=== PATIENT | female | born 1940 | race Caucasian/White ===

== ENCOUNTER 2020-03-19 06:42 | Day surgery (SDC) | payer MEDICARE ==
[~2020-03-19] VITALS: Ht 154.9 cm; Wt 93.2 kg
[2020-03-19] VITALS (8 sets, daily range): BP systolic 106–181; BP diastolic 43–64
[~2020-03-19 06:42] MED LIST: ASPI-1071 PO; CALC-212 PO; CLOP75TA33 PO; CYAN100097 PO; FIBER PO; ISOS60TA4 PO; LEVO150T8 PO; LOSA25TA96 PO; METO-411 PO; MULT-1074 PO; NIAC500C3 PO; NITR0.4T48 SL; NITR100C6 PO; OMEG-182 PO; RANI150T8 PO; WALKERFR; ZOLP10TA5 PO; [UNRECOGNIZED DRUG - CODE] PO
[2020-03-19] MEDS ORDERED: normal saline 1000ml 1,000 ML IV PRN (07:05)
[2020-03-19 07:37] LABS: BASOPHILS # (AUTO) 0.1 X10'3 (0-0.2); BASOPHILS % (AUTO) 0.8 % (0-1); EOSINOPHILS # (AUTO) 0.2 X10'3 (0-0.9); EOSINOPHILS % (AUTO) 2.6 % (0-6); HEMATOCRIT 40.1 % (35.0-45.0); HEMOGLOBIN 13.9 g/dl (12.0-16.0); LYMPHOCYTES # (AUTO) 2.6 X10'3 (1.1-4.8); LYMPHOCYTES % (AUTO) 27.8 % (21-51); MEAN CORPUSCULAR HGB CONC 34.5 g/dL (33.0-36.5); MEAN CORPUSCULAR VOLUME 98.4 FL (78-98); MEAN PLATELET VOLUME 7.5 FL (7.4-10.4); MONOCYTES # (AUTO) 0.8 X10'3 (0-0.9); MONOCYTES % (AUTO) 8.4 % (2-12); NEUTROPHILS # (AUTO) 5.7 X10'3 (1.8-7.7); NEUTROPHILS % (AUTO) 60.4 % (42-75); PLATELET COUNT 273 X10'3 (140-440); RED BLOOD COUNT 4.08 X10'6 (4.20-5.60); WHITE BLOOD COUNT 9.5 X10'3 (4.5-11.0)
[2020-03-19] MEDS ORDERED: pneumococcal 23-VAL P-sac vacc 25 mcg/0.5ml vial IMVAC ONE (07:55)
[2020-03-19] MEDS ORDERED: iohexol 300mg/ml 100ml inj. ONE (08:18)
[2020-03-19] MEDS ORDERED: LIDOcaine 1%/PF 5ML 10 MG/ML VIAL ONE (08:18)
[2020-03-19] MEDS ORDERED: fentaNYL/PF 50MCG/1 ML 2ML syringe ONE (08:18)
[2020-03-19] MEDS ORDERED: heparin 1,000 UNITS/NS 500ml 500 ML ONE (08:18)
[2020-03-19] MEDS ORDERED: midazolam 2 mg/2 ml injection ONE (08:18)
[2020-03-19] MEDS ORDERED: normal saline 1000ml 1,000 ML IV SCH (09:39)
--- NOTE | 2020-03-19 09:54 | NUR ---
Pt returned to room from procedure. VS stable as charted. Site dressing CD&I. NO s/s of bleeding. will continue to monitor
--- NOTE | 2020-03-19 10:09 | NUR ---
contacted pts per her request. discussed discharge plan.
--- NOTE | 2020-03-19 11:19 | NUR ---
pt requesting chicken broth. will bring to pt and continuing to monitor. pt denies cp, denies sob.
== END 2020-03-19 13:05 | disposition home or self-care (01) ==
LOC: SSTAY O 06:42
PROVIDERS: ATTEND Radiology Vascular & Interventional Radiology
DX: R93.422 Abnormal radiologic findings on diagnostic imaging of left kidney (principal); I11.9 Hypertensive heart disease without heart failure; I70.1 Atherosclerosis of renal artery; Z86.79 Personal history of other diseases of the circulatory system; Z79.899 Other long term (current) drug therapy
CPT/HCPCS: 36246; 36415; 75625; 75736; 76937; 85025; 85610; 99152; 99153; C1760; C1769; C1894; J1644; J2250; J3010; J7030; Q9967; 36160; G0269

== ENCOUNTER 2020-06-11 10:05 | Day surgery (SDC) | payer MEDICARE ==
[2020-06-10 12:57] LABS: BASOPHILS # (AUTO) 0.1 X10'3 (0-0.2); BASOPHILS % (AUTO) 0.7 % (0-1); EOSINOPHILS # (AUTO) 0.3 X10'3 (0-0.9); EOSINOPHILS % (AUTO) 2.6 % (0-6); HEMOGLOBIN 13.4 g/dl (12.0-16.0); LYMPHOCYTES # (AUTO) 2.9 X10'3 (1.1-4.8); LYMPHOCYTES % (AUTO) 29.3 % (21-51); MEAN CORPUSCULAR HEMOGLOBIN 33.2 PG (27.0-31.0); MEAN CORPUSCULAR HGB CONC 34.3 g/dL (33.0-36.5); MEAN CORPUSCULAR VOLUME 96.6 FL (78-98); MEAN PLATELET VOLUME 8.1 FL (7.4-10.4); MONOCYTES # (AUTO) 0.9 X10'3 (0-0.9); MONOCYTES % (AUTO) 9.5 % (2-12); NEUTROPHILS # (AUTO) 5.6 X10'3 (1.8-7.7); NEUTROPHILS % (AUTO) 57.9 % (42-75); PLATELET COUNT 256 X10'3 (140-440); RED BLOOD COUNT 4.04 X10'6 (4.20-5.60); WHITE BLOOD COUNT 9.7 X10'3 (4.5-11.0)
[2020-06-10 13:10] LABS: ALBUMIN 3.5 G/DL (3.4-5.0); ANION GAP 5 (8-16); BLOOD UREA NITROGEN 18 MG/DL (7-18); BUN/CREATININE RATIO 19.8 (6.6-38.0); CALCIUM 9.2 MG/DL (8.5-10.1); CHLORIDE 103 MMOL/L (99-107); CREATININE 0.91 MG/DL (0.40-0.90); GLUCOSE 86 MG/DL (70-104); POTASSIUM 3.4 MMOL/L (3.5-5.1); SODIUM 139 MMOL/L (135-145); TOTAL CARBON DIOXIDE 31.1 MMOL/L (24-32); eGFR 60 ML/MIN
[2020-06-10 13:12] LABS: PARTIAL THROMBOPLASTIN TIME 26 SECONDS (22-32)
[~2020-06-11] VITALS: Ht 160 cm; Wt 82.5 kg
[2020-06-11] VITALS (9 sets, daily range): BP systolic 104–146; BP diastolic 49–81
[~2020-06-11 10:05] MED LIST changes: -ASPI-1071 PO; -NIAC500C3 PO
[2020-06-11] MEDS ORDERED: cefazolin/dext.iso 2gm/50ml 50 ML IV ONE (10:25)
[2020-06-11] MEDS ORDERED: GLUC500T12 PO (10:45)
[2020-06-11] MEDS ORDERED: FAMO20TA8 PO (10:45)
[2020-06-11] MEDS ORDERED: VALS1TAB76 PO (10:45)
[2020-06-11] MEDS ORDERED: EST1T PO (10:45)
[2020-06-11] MEDS ORDERED: SUCR1TAB PO (10:45)
[2020-06-11] MEDS ORDERED: UBID100C16 PO (10:45)
[2020-06-11] MEDS ORDERED: NIA500ERT PO (10:45)
[2020-06-11] MEDS ORDERED: LOVA40TA2 PO (10:45)
[2020-06-11] MEDS ORDERED: DOCU-148 PO (10:45)
[2020-06-11] MEDS ORDERED: ceFAZolin 1000mg inj ONE (11:48)
[2020-06-11] MEDS ORDERED: midazolam 2 mg/2 ml injection ONE ×2 (11:48→12:32)
[2020-06-11] MEDS ORDERED: fentaNYL/PF 50MCG/1 ML 2ML syringe ONE ×2 (11:48→13:05)
[2020-06-11] MEDS ORDERED: LIDOcaine 1% W/epiNEPHrine 1:100,000 20ml vial ONE (11:49)
[2020-06-11] MEDS ORDERED: diphenhydrAMINE 50 mg/ml inj ONE (12:34)
[2020-06-11] MEDS ORDERED: normal saline 1000ml 1,000 ML IV SCH (13:55)
[2020-06-11] MEDS ORDERED: HYDROcodone/acetaminophen 10/325mg tab PO PRN (14:00)
[2020-06-11] MEDS ORDERED: HYDROcodone/acetaminophen 5mg/325mg tablet PO PRN (14:00)
[2020-06-11] MEDS ORDERED: vancomycin/NS 1 GM ADD-VANTAGE 250 ML IV ONE (15:00)
== END 2020-06-11 18:30 | disposition home or self-care (01) ==
LOC: SSTAY O 10:05
PROVIDERS: ATTEND Internal Medicine Cardiovascular Disease
DX: I49.5 Sick sinus syndrome (principal); I25.10 Atherosclerotic heart disease of native coronary artery without angina pectoris; I10 Essential (primary) hypertension; E78.5 Hyperlipidemia, unspecified; G47.30 Sleep apnea, unspecified; E78.49 Other hyperlipidemia; K21.9 Gastro-esophageal reflux disease without esophagitis; E66.9 Obesity, unspecified; Z68.38 Body mass index [BMI] 38.0-38.9, adult; F41.9 Anxiety disorder, unspecified; Z95.5 Presence of coronary angioplasty implant and graft; Z79.899 Other long term (current) drug therapy; Z79.01 Long term (current) use of anticoagulants; Z90.49 Acquired absence of other specified parts of digestive tract; Z98.890 Other specified postprocedural states; Z98.41 Cataract extraction status, right eye; Z98.42 Cataract extraction status, left eye; Z90.710 Acquired absence of both cervix and uterus; Z82.49 Family history of ischemic heart disease and other diseases of the circulatory system
CPT/HCPCS: 33208; 36415; 71046; 80048; 85025; 85610; 85730; 93005; 99152; 99153; C1785; C1894; C1898; J0690; J1200; J2250; J3010; J3370; A4565

== ENCOUNTER 2020-06-15 13:18 | Emergency (ER) | payer MEDICARE ==
[~2020-06-15] VITALS: Ht 162.6 cm; Wt 90.9 kg
[~2020-06-15 13:18] MED LIST changes: +DOCU-148 PO; +EST1T PO; +FAMO20TA8 PO; -FIBER PO; +GLUC500T12 PO; -LOSA25TA96 PO; +LOVA40TA2 PO; +NIA500ERT PO; -RANI150T8 PO; +SUCR1TAB PO; +UBID100C16 PO; +VALS1TAB76 PO; -WALKERFR
[2020-06-15 13:24] VITALS: BP 135/65
== END 2020-06-15 14:56 | disposition home or self-care (01) ==
LOC: ER 13:18
DX: M25.532 Pain in left wrist (principal); E78.00 Pure hypercholesterolemia, unspecified; I10 Essential (primary) hypertension; K21.9 Gastro-esophageal reflux disease without esophagitis; Z85.9 Personal history of malignant neoplasm, unspecified; Z98.61 Coronary angioplasty status; Z90.49 Acquired absence of other specified parts of digestive tract; Z95.0 Presence of cardiac pacemaker; Z90.89 Acquired absence of other organs; Z98.890 Other specified postprocedural states; Z88.8 Allergy status to other drugs, medicaments and biological substances; Z79.899 Other long term (current) drug therapy
CPT/HCPCS: 73110; 99284

== ENCOUNTER 2021-04-29 08:08 | Day surgery (SDC) | payer MEDICARE ==
[2021-04-28 11:02] LABS: BASOPHILS # (AUTO) 0.1 X10'3 (0-0.2); BASOPHILS % (AUTO) 0.7 % (0-1); EOSINOPHILS # (AUTO) 0.1 X10'3 (0-0.9); EOSINOPHILS % (AUTO) 1.5 % (0-6); HEMATOCRIT 38.8 % (35.0-45.0); HEMOGLOBIN 13.3 g/dl (12.0-16.0); LYMPHOCYTES % (AUTO) 22.7 % (21-51); MEAN CORPUSCULAR HEMOGLOBIN 33.7 PG (27.0-31.0); MEAN CORPUSCULAR HGB CONC 34.3 g/dL (33.0-36.5); MEAN CORPUSCULAR VOLUME 98.2 FL (78-98); MEAN PLATELET VOLUME 7.4 FL (7.4-10.4); MONOCYTES # (AUTO) 0.7 X10'3 (0-0.9); MONOCYTES % (AUTO) 8.4 % (2-12); NEUTROPHILS # (AUTO) 5.8 X10'3 (1.8-7.7); NEUTROPHILS % (AUTO) 66.7 % (42-75); PLATELET COUNT 249 X10'3 (140-440); RED BLOOD COUNT 3.95 X10'6 (4.20-5.60); RED CELL DISTRIBUTION WIDTH 12.9 % (11.5-14.5); WHITE BLOOD COUNT 8.6 X10'3 (4.5-11.0)
[2021-04-28 11:12] LABS: PARTIAL THROMBOPLASTIN TIME 22 SECONDS (22-32)
[2021-04-28 11:14] LABS: ALBUMIN 3.4 G/DL (3.4-5.0); ANION GAP 12 (8-16); BLOOD UREA NITROGEN 15 MG/DL (7-18); BUN/CREATININE RATIO 15.8 (6.6-38.0); CALCIUM 9.1 MG/DL (8.5-10.1); CHLORIDE 103 MMOL/L (99-107); CREATININE 0.95 MG/DL (0.40-0.90); GLUCOSE 142 MG/DL (70-104); POTASSIUM 3.1 MMOL/L (3.5-5.1); SODIUM 142 MMOL/L (135-145); TOTAL CARBON DIOXIDE 27.2 MMOL/L (24-32); eGFR 57 ML/MIN
[~2021-04-29] VITALS: Ht 154.9 cm; Wt 87.3 kg
[2021-04-29] VITALS (16 sets, daily range): BP systolic 127–173; BP diastolic 44–87
[~2021-04-29 08:08] MED LIST changes: -ISOS60TA4 PO; +ISOS60TA71 PO
[2021-04-29] MEDS ORDERED: LORazepam 0.5 MG tablet PO PRN (08:25)
[2021-04-29] MEDS ORDERED: diphenhydrAMINE 25mg capsule PO PRN (08:25)
[2021-04-29] MEDS: normal saline 1,000 ML IV SCH ×2 (08:37→16:51)
[2021-04-29] MEDS ORDERED: VIT1CAPS46 PO (08:42)
[2021-04-29] MEDS ORDERED: LIDOcaine/PRILOcaine 5gm cream TP ONE (08:52)
[2021-04-29] MEDS ORDERED: iohexol 350 MG/ML 50ML vial IV ONE ×2 (10:36→11:53)
[2021-04-29] MEDS ORDERED: LIDOcaine 1% (10mg/ml)w/preservative injection 20ml MDV ONE (10:36)
[2021-04-29] MEDS ORDERED: midazolam 1 mg/ML 2ml injection ONE (10:36)
[2021-04-29] MEDS ORDERED: heparin 1,000unit/ml 10ml vial 10 ML ONE (10:36)
[2021-04-29] MEDS ORDERED: verapamil 2.5 mg/ml inj IV ONE (10:36)
[2021-04-29] MEDS ORDERED: fentaNYL/PF 50MCG/1 ML 2ML syringe ONE (10:36)
[2021-04-29] MEDS ORDERED: iohexol 350MG/ML 100ml bottle IV ONE ×2 (10:37→11:57)
[2021-04-29] MEDS ORDERED: nitroGLYCERIN-Tridil 50MG/D5W 250 ML IV ONE (10:37)
[2021-04-29] MEDS ORDERED: heparin 25,000 UNIT/250ml bag 250 ML IV ONE (11:59)
[2021-04-29] MEDS ORDERED: clopidogrel 300mg tablet ONE (12:22)
[2021-04-29] MEDS ORDERED: morphine 2 MG/ML inj. syringe IV ONE (13:15)
[2021-04-29] MEDS ORDERED: magnesium hydroxide 30ml (MOM) UD suspension PO PRN (13:25)
[2021-04-29] MEDS ORDERED: aspirin 81mg tab.chew PO ONE (13:25)
[2021-04-29] MEDS ORDERED: HYDROcodone/acetaminophen 10/325mg tab PO PRN ×2 (13:25)
[2021-04-29] MEDS ORDERED: acetaminophen 325mg tablet PO PRN ×2 (13:25)
[2021-04-29] MEDS ORDERED: OXAZEpam 15mg capsule PO PRN (13:25)
[2021-04-29] MEDS ORDERED: cyclobenzaprine 10mg tablet PO PRN (13:25)
[2021-04-29 14:20] LABS: ISTAT HGB ART 11.6 g/dl (12.0-16.0); ISTAT Hct ART 34 %PCV (35-48); ISTAT O2 SATURATION ARTERIAL 99 % (95-98); ISTAT SOURCE BLNK
[2021-04-29 14:21] LABS: ISTAT Hct MIX 34 %PCV (35-48); ISTAT O2 SATURATION MIX VENOUS 68 % (60-80); ISTAT SOURCE BLNK
[2021-04-29] MEDS ORDERED: hydrALAZINE 20mg/ml inj. IV ONE (14:30)
--- NOTE | 2021-04-29 14:30 | NUR ---
ACT result is 186, notified MD CAREN stated ok to pull sheath, received orders for Hydrolazine PRN SBP greater than 160.
[2021-04-29] MEDS ORDERED: docusate sod 100mg capsule PO SCH (20:00)
[2021-04-30] MEDS ORDERED: clopidogrel 75mg tablet PO SCH (08:00)
[2021-04-30] MEDS ORDERED: aspirin 325mg tablet PO SCH (08:30)
== END 2021-04-29 20:30 | disposition home or self-care (01) ==
LOC: SSTAY O 08:08
PROVIDERS: ATTEND Internal Medicine Cardiovascular Disease
DX: R53.83 Other fatigue (principal); R06.02 Shortness of breath; I25.10 Atherosclerotic heart disease of native coronary artery without angina pectoris; I10 Essential (primary) hypertension; G47.30 Sleep apnea, unspecified; E78.49 Other hyperlipidemia; F41.9 Anxiety disorder, unspecified; K21.9 Gastro-esophageal reflux disease without esophagitis; E66.9 Obesity, unspecified; Z68.36 Body mass index [BMI] 36.0-36.9, adult; Z95.5 Presence of coronary angioplasty implant and graft; Z79.01 Long term (current) use of anticoagulants; Z79.899 Other long term (current) drug therapy; Z82.49 Family history of ischemic heart disease and other diseases of the circulatory system; Z83.3 Family history of diabetes mellitus
CPT/HCPCS: 36415; 76937; 80048; 82803; 85014; 85025; 85347; 85610; 85730; 93005; 93460; 99152; 99153; C1725; C1751; C1769; C1874; C1894; C9600; J1644; J2001; J2250; J2270; J3010; J7030; Q0163; Q9967; A4620; A5120; A6258; J3490

== ENCOUNTER 2023-02-14 12:29 | Outpatient (CLI) | payer MEDICARE ==
[~2023-02-14 12:29] MED LIST changes: -CYAN100097 PO; -FAMO20TA8 PO; -GLUC500T12 PO; -NIA500ERT PO; -NITR100C6 PO; -OMEG-182 PO; -UBID100C16 PO; +VIT1CAPS46 PO
== END 2023-02-14 23:59 | disposition home or self-care (01) ==
LOC: CARD DIAG 12:29
PROVIDERS: ATTEND Internal Medicine Cardiovascular Disease
DX: I08.3 Combined rheumatic disorders of mitral, aortic and tricuspid valves (principal); R06.02 Shortness of breath; R53.83 Other fatigue
CPT/HCPCS: 93306

== ENCOUNTER 2024-09-17 19:35 | Emergency (ER) | payer MEDICARE ==
[~2024-09-17] VITALS: Ht 160 cm; Wt 86.0 kg
[2024-09-17 21:07] LABS: BILIRUBIN,URINE NEGATIVE (Neg); CLARITY,URINE CLEAR (Clear); COLOR,URINE YELLOW (Yellow); GLUCOSE, URINE NEGATIVE (Neg); KETONES,URINE TRACE mg/dl (Neg); LEUKOCYTE ESTERASE ,URINE SMALL (Neg); NITRITES, URINE NEGATIVE (Neg); OCCULT BLOOD,URINE NEGATIVE (Neg); PROTEIN,URINE TRACE mg/dl (Neg); UROBILINOGEN,URINE 0.2 E.U/dL (0.2-1.0)
[2024-09-17 21:13] LABS: UA COLLECTION TYPE CLN CATCH MIDSTREAM
[2024-09-17 21:15] LABS: SQUAMOUS EPITHELIAL CELL,UR MANY /LPF (FEW)
[2024-09-17 21:16] LABS: BACTERIA,URINE 2+ /HPF (Neg); RBC,URINE NONE SEEN /HPF (0-2)
[2024-09-17 21:17] LABS: CAL OXALATE CRYSTALS 2+ /HPF (NEGATIVE)
[2024-09-17] MEDS ORDERED: PHEN-716 PO (22:23)
[2024-09-17] MEDS ORDERED: CEPH-585 PO (22:23)
[2024-09-17] MEDS: CefTRIAXone 1000mg IM Kit (w/lidocaine diluent) IM ONE (22:26)
[2024-09-17 22:31] VITALS: BP 108/62; PULSE 70; RESP 16; TEMP 97.6; O2SAT 97
== END 2024-09-17 22:32 | disposition home or self-care (01) ==
LOC: ER 19:36
DX: N39.0 Urinary tract infection, site not specified (principal); E78.00 Pure hypercholesterolemia, unspecified; I10 Essential (primary) hypertension; K21.9 Gastro-esophageal reflux disease without esophagitis; Z91.09 Other allergy status, other than to drugs and biological substances; Z79.899 Other long term (current) drug therapy; Z79.2 Long term (current) use of antibiotics; Z90.49 Acquired absence of other specified parts of digestive tract; Z90.710 Acquired absence of both cervix and uterus; Z95.0 Presence of cardiac pacemaker
CPT/HCPCS: 81001; 96372; 99283; J0696

== ENCOUNTER 2024-11-27 12:06 | Outpatient (CLI) | payer MEDICARE ==
[~2024-11-27 12:06] MED LIST changes: +PHEN-716 PO
== END 2024-11-27 23:59 | disposition home or self-care (01) ==
LOC: MRI 12:06
PROVIDERS: ATTEND Nurse Practitioner Family
DX: I67.82 Cerebral ischemia (principal); R42 Dizziness and giddiness; R26.89 Other abnormalities of gait and mobility
CPT/HCPCS: 70551

== ENCOUNTER 2025-04-13 13:30 | Emergency (ER) | payer MEDICARE ==
[~2025-04-13] VITALS: Ht 160 cm; Wt 81.8 kg
[~2025-04-13 13:30] MED LIST changes: +ASPI-1265 PO; -CALC-212 PO; -CLOP75TA33 PO; +CLOP75TA34 PO; +ESTR42.510; +FAMO20TA8 PO; +HYDR12.55 PO; -MULT-1074 PO; -PHEN-716 PO; +VALS160T30; -VIT1CAPS46 PO; -[UNRECOGNIZED DRUG - CODE] PO
--- NOTE | 2025-04-13 14:22 | Physician Documentation ---
History of Present Illness ~ Chief Complaint: Neck pain Stated Complaint: NECK PAIN Time Seen by MD: 14:16 OK to notify your PCP?: Yes Primary Medical Doctor: ANGELITO LOPEZ Source: patient Mode of Arrival: POV Exam Limitations: no limitations HPI 84-year-old female presenting with left neck pain and swelling for the past 3 days. She has a front upper left tooth which is broken off and she is afraid that it may be infected. Her left ear has also been aching for a couple of days, no hearing change. Not taken any medications for her symptoms prior to arrival. She has plans to see a dentist to have the remaining part of that tooth pulled but she has yet to see 1. Medication Reconciliation Allergies: Coded Allergies: adhesive (Verified Allergy, Unknown, 04/13/25) Scheduled Aspirin (Aspirin), 1 TAB PO BID, (Reported) Clopidogrel Bisulfate (Clopidogrel), 1 TABLET PO DAILY, (Reported) Estradiol* (Estrace*), 0.5 MG PO DAILY, (Reported) Famotidine (Famotidine), 1 TABLET PO BID, (Reported) Hydrochlorothiazide (Hydrochlorothiazide), 1 TABLET PO DAILY, (Reported) Isosorbide Mononitrate (Isosorbide Mononitrate Er), 1 TAB PO BID, (Reported) Levothyroxine Sodium (Levothyroxine Sodium), 1 TAB PO DAILY, (Reported) Lovastatin (Lovastatin), 1 TAB PO DAILY, (Reported) Metoprolol Succinate (Metoprolol Succinate), 0.5 TABLET PO BID, (Reported) Valsartan (Valsartan), 1 DAILY, (Reported) Valsartan/Hydrochlorothiazide (Valsartan-Hctz 160-12.5 Mg Tab), 1 TAB PO DAILY, (Reported) Scheduled PRN Docusate Sodium (Colace), 1 CAP PO DAILY PRN for constipation, (Reported) Nitroglycerin (Nitroglycerin), 0.3 MG SL PRN PRN for chest pain, (Reported) Sucralfate (Sucralfate), 1 TAB PO Q12H PRN for acid reflux, (Reported) Zolpidem Tartrate* (Ambien*), 5 MG PO HS PRN for sleep, (Reported) Miscellaneous Medications Estradiol (Estradiol), (Reported) Past Medical History Past Medical History: High Cholesterol, Hypertension, GERD, *CANCER* Past Surgical History: angioplasty, cholecystectomy, hysterectomy, pacemaker, tonsillectomy, other Other Past Family History: NONCONTRIBUTORY Alcohol Use: None Drug Use: none Lives with: Spouse Review of Systems All Other Systems at this time: Reviewed and Negative Physical Exam Vital Signs: RN Vital Signs have been reviewed: Yes, Temperature: 98.5, Source: Temporal, Heart Rate: 70, Respiratory Rate: 16, BP: 175/61, Pulse Oximetry: 98, Weight: 81.820 Oxygen Flow Rate: 0 Pulse Oximetry Reflects: adequate oxygenation Physical Exam General: Alert, no apparent distress. HEENT: PERRL, EOMI, no injection, moist mucous membranes. Broken #9 Tooth, no gingival swelling or erythema or tenderness to percussion. Bilateral TM clear. No mastoid tenderness. Neck: Full range of motion. No cervical lymphadenopathy, trachea midline, tenderness and edema to palpation to base of neck at left trapezius muscle. Range motion of the neck due to pain. Respiratory: Lungs clear, no respiratory distress. Chest: No accessory muscle use. Cardiovascular: Regular rate and rhythm, no murmurs. Gastrointestinal: Soft, nontender, nondistended. Bowels sounds present. Extremities: Normal range of motion, no deformity. Neurologic: Oriented x4. Psychiatric: Normal mood and affect. Skin: Normal color, warm and dry. No edema, no ecchymosis. Progress Results/Orders Reviewed/noted all lab results: Yes Results/Orders Vital Signs 04/13/25 13:33 Temp 98.5 Pulse 70 Resp 16 B/P (MAP) 175/61 Pulse Ox 98 O2 Flow Rate 0 Medical Decision Making Findings 84-year-old female presents with 3 days of left-sided lower neck pain and swelli ng. The area is soft tender to palpation and visibly enlarged when compared to the other side. She has decreased range of motion her neck due to pain. She has not taken any medications yet for this. She does take Plavix and aspirin. I ordered Tylenol for pain relief. I discussed this case with both JEREMY Hermosillo and Dr. Boone and they both examined her, and they recommended it could be musculoskeletal in nature or due to her broken to. Due to her broken tooth we will start an antibiotic regimen, treat possible dental abscess. She should follow up with the primary care provider in the next 3 days she can return back here for any new or worsening symptoms. She can use Tylenol or heating pack at home for pain relief of the neck. Differential Dx:Considerations: Include: Cervical muscle spasm, Discitis, Meningitis Additional Comment Neck mass, Virchow node enlargement, malignancy. Departure Disposition: HOME / SELF CARE / HOMELESS Impression: Primary Impression: Dental abscess Additional Impression: Torticollis Condition: Stable Discharge Instructions: Acute Torticollis, Adult, Dental Abscess, [id number] Additional Instructions: Please take all antibiotics as prescribed and finish the course. Please see your dentist to get that tooth removed. You can use Tylenol for pain relief at home as well as heating packs. See your primary care provider in the next 3 days and return back here for any new or worsening symptoms. Referrals: NO PRIMARY CARE PROVIDER (PCP) Prescriptions Clindamycin HCl (Clindamycin HCl) 300 Mg Capsule 1 CAP PO Q8H for 7 Days, #21 CAP Prov: MERRY RODRIGUEZ 04/13/25 Education Educated: Patient, Family Educated regarding: diagnosis, treatment, prognosis, need for follow up Signature Scribe Signature: . Attestation: Scribed for Emergency,Department by Merry Farmer NP . 04/13/25 14:59 MERRY RODRIGUEZ Apr 13, 2025 14:21
[2025-04-13] MEDS ORDERED: CLIN-197 PO (14:58)
[2025-04-13] MEDS: clindamycin 150mg capsule PO ONE (15:01)
[2025-04-13] MEDS: acetaminophen 325mg tablet PO ONE (15:03)
[2025-04-13 15:13] VITALS: BP 204/79; PULSE 69; RESP 16; TEMP 98.5; O2SAT 96
== END 2025-04-13 15:15 | disposition home or self-care (01) ==
LOC: ER 13:31
DX: K04.7 Periapical abscess without sinus (principal); M43.6 Torticollis; I10 Essential (primary) hypertension; E78.00 Pure hypercholesterolemia, unspecified; K21.9 Gastro-esophageal reflux disease without esophagitis; Z88.8 Allergy status to other drugs, medicaments and biological substances; Z90.49 Acquired absence of other specified parts of digestive tract; Z90.710 Acquired absence of both cervix and uterus; Z95.0 Presence of cardiac pacemaker; Z79.899 Other long term (current) drug therapy
CPT/HCPCS: 99284

== ENCOUNTER 2025-08-28 15:48 | Outpatient (CLI) | payer MEDICARE ==
[~2025-08-28] VITALS: Ht 130.2 cm; Wt 83.9 kg
[2025-08-28] MEDS: albuterol 2.5 MG/3 ML nebule NEB ONE (16:46)
[2025-08-28 17:00] VITALS: PULSE 70; RESP 20; O2SAT 96
== END 2025-08-28 23:59 | disposition home or self-care (01) ==
LOC: RT 15:48
PROVIDERS: ATTEND Family Medicine
DX: R06.00 Dyspnea, unspecified (principal); R06.02 Shortness of breath
CPT/HCPCS: 94010; 94760